=== PATIENT | male | born 1950 | race Caucasian/White ===

== ENCOUNTER 2019-01-08 05:50 | Day surgery (SDC) | payer MEDICARE ==
[~2019-01-08 05:50] MED LIST: Buffered Lidocaine 1% SYRIN* 1 ML/SYRINGE INTRADERM ONE
[2019-01-08] MEDS ORDERED: Lactated Ringers 1000 ML Bag* 1,000 ML IV SCH (06:00)
[2019-01-08] MEDS ORDERED: ceFAZolin 2 GM in NS PREMIX(*) 2 GM/100 ML BAG IVPB ONE (06:05)
[2019-01-08] MEDS ORDERED: Buffered Lidocaine 1% SYRIN* 1 ML/SYRINGE INTRADERM ONE (06:06)
[2019-01-08] MEDS ORDERED: Lidocaine 1% INJ* 10 MG/ML 30 ML SDV ONE (06:47)
[2019-01-08] MEDS ORDERED: Naloxone* 0.4 MG/ML 1 ML VIAL IV PRN (07:15)
[2019-01-08] MEDS ORDERED: Midazolam* 1 MG/ML 5 ML VIAL (5 MG) ONE (07:31)
[2019-01-08] MEDS ORDERED: fentaNYL* 50 MCG/ML 2 ML VIAL (100 MCG VIAL) ONE (07:31)
[2019-01-08] MEDS ORDERED: Propofol* 10 MG/ML 20 ML BTL ONE (07:40)
[2019-01-08] MEDS ORDERED: Ibuprofen TAB* 400 MG PO PRN (08:48)
[2019-01-08] MEDS ORDERED: oxyCODONE TAB* 5 MG TAB PO PRN (08:48)
[2019-01-08] MEDS ORDERED: Acetaminophen TAB* 325 MG PO PRN (08:48)
[2019-01-08 09:48] VITALS: BP 123/62
--- NOTE | 2019-01-08 21:51 | OP ---
CC: Dr. Tyree Nichole * DATE OF OPERATION: 01/08/19 - [facility] DATE OF : 50 SURGEON: Rohit Dumont MD. BOTTOM TURNER: None. ANESTHESIOLOGIST: Dr. Yung. ANESTHESIA: Local MAC. PRE-OPERATIVE DIAGNOSIS: Colon carcinoma. POST-OPERATIVE DIAGNOSIS: Colon carcinoma. OPERATIVE PROCEDURE: Placement of central venous catheter with subcutaneous access port (PowerPort). ESTIMATED BLOOD LOSS: Minimal. IV FLUIDS: Crystalloid. SPECIMEN: None. DRAINS: None. COMPLICATIONS: None. COUNTS: The instrument, needle, and sponge counts were correct. DESCRIPTION OF PROCEDURE: The patient was brought to the operating room and placed on the table supine. Sequential compression devices were placed on both lower extremities. Intravenous sedation was administered. He was positioned and padded appropriately and prepped and draped in the usual sterile fashion. He received appropriate intravenous antibiotics. Local anesthetic was infiltrated in the skin and soft tissue for a right subclavian approach. An hematoma subsequently developed in that side, and it was therefore decided to perform a right internal jugular access through an anterior approach using ultrasound guidance. After anesthetizing the area, the right internal jugular vein was accessed with an 18-gauge needle and a J-wire was placed. Its position was confirmed on the fluoroscopy in the superior vena cava. Additional local anesthetic was infiltrated in the upper right chest in the area where the pocket was to be created. Transverse incision was created with the scalpel. Subcutaneous tissues were elevated with cautery to create the pocket. Additional anesthetic was infiltrated in the line of the proposed subcutaneous tunnel. An 8-Setswana PowerPort catheter was tunneled to the guidewire exit site and then peel-away sheath and dilator were advanced under fluoroscopic guidance into the superior vena cava. Guidewire and dilator were removed and the catheter was advanced to the atriocaval junction. The catheter was then cut to an appropriate length at 29 cm. It was connected to the port, and this was placed into the pocket and secured with a single 2-0 Prolene suture. The port was accessed, withdrawn, and flushed easily and flushed with heparinized saline. The pocket was closed in two layers with 3-0 Vicryl for the subcutaneous and 4-0 Monocryl in a running subcuticular fashion for the skin. 4-0 Monocryl was also used at the counterincision in the neck. Dressing of DermaFlex was applied. The patient tolerated the procedure well and was transferred to Recovery stable. [id number] #: [id number] MTDD
== END 2019-01-08 09:30 | disposition home or self-care (01) ==
LOC: OR 05:50
PROVIDERS: ATTEND Surgery
DX: C18.7 Malignant neoplasm of sigmoid colon (principal); C43.59 Malignant melanoma of other part of trunk; I10 Essential (primary) hypertension
CPT/HCPCS: 71045; 76000; C1788; J0690; J1642; J2250; J2704; J3010

== ENCOUNTER 2022-10-21 11:11 | Inpatient (IN) ==
[2022-10-21] MEDS ORDERED: Lactated Ringers 1000 ml BAG 1,000 ML IV ONE (11:19)
[2022-10-21] MEDS ORDERED: Famotidine IV 10 MG/ML 2 ml VIAL (20 mg) IV SLOW PU ONE (11:19)
[2022-10-21 11:56] LABS: ABS Lymphocytes 0.4 10^3/ul (1.0-4.8); ABS Monocytes 0.2 10^3/ul (0-0.8); ABS Neutrophils 9.8 10^3/ul (1.5-7.7); Hematocrit 51 % (42-52); Hemoglobin 17.1 g/dL (14.0-18.0); Lymphocyte % 4.1 %; Mean Corpuscular Hemoglobin 32 pg (27-31); Mean Corpuscular Hgb Conc 34 g/dL (31-36); Mean Corpuscular Volume 95 fL (80-94); Mean Platelet Volume 9.3 fL (7.4-10.4); Platelet Count 126 10^3/uL (150-450); Red Blood Count 5.31 10^6 /uL (4.18-5.48); Red Cell Distribution Width 14 % (10-15); White Blood Count 10.5 10^3/uL (3.5-10.8)
[2022-10-21 12:35] LABS: Albumin 4.3 g/dL (3.2-5.2); Albumin/Globulin Ratio 1.8 (1-3); C Reactive Protein 5.19 mg/L (<8.01); Calcium 9.7 mg/dL (8.6-10.3); Creatinine, Serum 1.01 mg/dL (0.67-1.17); Globulin 2.4 g/dL (2-4); Potassium 3.9 mmol/L (3.5-5.0); Total Bilirubin 2.1 mg/dL (0.2-1.0); Total Protein 6.7 g/dL (6.4-8.9)
[2022-10-21] MEDS ORDERED: Iohexol 300 (CONTRAST) 10 ML SDV IV ONE (12:41)
[2022-10-21] MEDS ORDERED: Morphine 4 MG/ML VIAL (1 ml) IV ONE (14:45)
[2022-10-21] MEDS ORDERED: Ondansetron 4 mg VIAL 2 MG/ML 2 ml VIAL IV ONE (14:45)
[2022-10-21 15:02] LABS: Urine Appearance Clear; Urine Bilirubin Negative (Negative); Urine Blood Negative (Negative); Urine Color Yellow; Urine Glucose 2+(150 mg/dL) (Negative); Urine Ketones 1+ (Negative); Urine Nitrite Negative (Negative); Urine Protein Negative (Negative); Urine Urobilinogen Positive (Negative)
[2022-10-21] MEDS ORDERED: Ondansetron 4 mg VIAL 2 MG/ML 2 ml VIAL IV PRN (15:21)
[2022-10-21] MEDS ORDERED: Acetaminophen IV 1 GM/100ML 1,000 MG/100 ML BAG IV PRN (15:24)
[2022-10-21 15:27] LABS: Urine Specific Gravity > 1.060 (1.002-1.030)
[2022-10-21] MEDS ORDERED: Morphine 2 MG/ML SYRINGE IV PRN (15:30)
[2022-10-21] MEDS ORDERED: Diatrizoate Meg/Sod(CONTRAST) 30 ML ORAL.SOLN PO ONE (17:07)
[2022-10-21] MEDS: Lactated Ringers 1000 ml BAG 1,000 ML IV SCH (19:04)
[2022-10-21] MEDS: Enoxaparin 40 MG/0.4 ML SYR SUBCUT SCH (22:02)
[2022-10-22] MEDS ORDERED: LORazepam 2 mg VIAL 1 ml IV PUSH ONE (04:24)
[2022-10-22] MEDS ORDERED: Lorazepam PYXIS KEY PRN (04:24)
[2022-10-22] MEDS: Lactated Ringers 1000 ml BAG 1,000 ML IV SCH ×3 (04:39→20:30)
[2022-10-22 06:00] LABS: ABS Lymphocytes 0.7 10^3/ul (1.0-4.8); ABS Monocytes 0.6 10^3/ul (0-0.8); ABS Neutrophils 8.7 10^3/ul (1.5-7.7); Eosinophil % 0.1 %; Hematocrit 46 % (42-52); Hemoglobin 15.8 g/dL (14.0-18.0); Lymphocyte % 6.7 %; Mean Corpuscular Hemoglobin 33 pg (27-31); Mean Corpuscular Hgb Conc 35 g/dL (31-36); Mean Corpuscular Volume 96 fL (80-94); Mean Platelet Volume 9.6 fL (7.4-10.4); Nucleated Red Blood Cells % 0.1; Platelet Count 112 10^3/uL (150-450); Red Blood Count 4.75 10^6 /uL (4.18-5.48); Red Cell Distribution Width 13 % (10-15); White Blood Count 10.1 10^3/uL (3.5-10.8)
[2022-10-22 06:19] LABS: Albumin 3.9 g/dL (3.2-5.2); Albumin/Globulin Ratio 1.9 (1-3); Calcium 9.4 mg/dL (8.6-10.3); Creatinine, Serum 1.02 mg/dL (0.67-1.17); Globulin 2.1 g/dL (2-4); Magnesium 2.1 mg/dL (1.9-2.7); Potassium 3.8 mmol/L (3.5-5.0); Total Bilirubin 2.8 mg/dL (0.2-1.0); eGFR CKD-EPI 78.1 (>60)
[2022-10-22] MEDS: KCL 10 MEQ/50 ML IVPREMIX 10 MEQ/50 ML BAG IV SCH ×2 (09:33→11:10)
[2022-10-22] MEDS: Pantoprazole VIAL 40 MG VIAL IV SCH (09:37)
[2022-10-22] MEDS ORDERED: Benzocaine (plain) Lozenge 15 MG MT PRN (12:37)
[2022-10-22] MEDS: Enoxaparin 40 MG/0.4 ML SYR SUBCUT SCH (20:29)
[2022-10-23] MEDS: Lactated Ringers 1000 ml BAG 1,000 ML IV SCH (04:37)
[2022-10-23 08:27] LABS: Calcium 8.6 mg/dL (8.6-10.3); Creatinine, Serum 0.92 mg/dL (0.67-1.17); Magnesium 2.1 mg/dL (1.9-2.7); Potassium 3.9 mmol/L (3.5-5.0); eGFR CKD-EPI 88.4 (>60)
[2022-10-23] MEDS: Pantoprazole VIAL 40 MG VIAL IV SCH (08:27)
[2022-10-23 16:16] LABS: Hepatitis C Antibody Negative (Negative)
[2022-10-23] MEDS: Enoxaparin 40 MG/0.4 ML SYR SUBCUT SCH (20:44)
[2022-10-24] MEDS: Pantoprazole VIAL 40 MG VIAL IV SCH (09:07)
[2022-10-24 12:30] VITALS: BP 144/69
== END 2022-10-24 14:25 | disposition home or self-care (01) | DRG 389 ==
LOC: ED 11:11 → EDHOLD 11:11 → SSU 17:39
PROVIDERS: ADMIT Internal Medicine; ATTEND Internal Medicine